=== PATIENT | male | born 2000 | race Caucasian/White ===

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

== ENCOUNTER 2023-06-16 21:18 | Day surgery (SDC) | payer OTHER ==
[~2023-06-16] VITALS: Ht 160 cm; Wt 72.9 kg
[2023-06-16] MEDS ORDERED: PIPERACILLIN/TAZOBACTAM SOD 3.375 GM in D5W MINI-BAG PLUS 50 ML IV SCH (21:20)
[2023-06-16] MEDS ORDERED: ONDANSETRON 4MG 2ML VIAL IV PRN (21:20)
[2023-06-16 22:05] VITALS: BP 120/69; TEMP 97.5; O2SAT 99
[2023-06-16] MEDS ORDERED: UNRESOLVED CLARIFICATION ENTRY XX STA (22:13)
[2023-06-16] MEDS ORDERED: LIDOCAINE 1% SDV 30ML VIAL As Ordered ONE (22:39)
[2023-06-16] MEDS ORDERED: VITA200016 PO (22:44)
[2023-06-16] MEDS ORDERED: FERR325T3 PO (22:44)
[2023-06-16] MEDS ORDERED: HOME MED LIST COMPLETE! XX SCH (22:45)
[2023-06-16] MEDS ORDERED: CEFEPIME 1GM VIAL (MAXIPIME) As Ordered ONE (22:54)
[2023-06-16] MEDS ORDERED: fentaNYL 100 MCG/2 ML INJECTION As Ordered ONE (23:30)
[2023-06-16] MEDS ORDERED: LIDOCAINE 2% 100MG/5ML SDV (FOR ANES.) As Ordered ONE (23:30)
[2023-06-16] MEDS ORDERED: ONDANSETRON 4MG 2ML VIAL As Ordered ONE (23:30)
[2023-06-16] MEDS ORDERED: KETOROLAC 60MG 2ML VIAL As Ordered ONE (23:30)
[2023-06-16] MEDS ORDERED: propofoL 200 MG/20 ML VIAL As Ordered ONE (23:30)
[2023-06-16] MEDS ORDERED: MIDAZOLAM INJ 2MG/2ML VIAL As Ordered ONE (23:30)
[2023-06-16] MEDS ORDERED: ROCURONIUM BROMIDE 50MG/5ML VIAL As Ordered ONE (23:30)
[2023-06-16] MEDS ORDERED: SUCCINYLCHOLINE 100MG/5ML SYRINGE As Ordered ONE (23:30)
[2023-06-16] MEDS ORDERED: PHENYLephrine 500MCG 5ML (100MCG/ML) SYRINGE As Ordered ONE (23:42)
[2023-06-16] MEDS ORDERED: ACETAMINOPHEN 1000MG 100ML IV BAG As Ordered ONE (23:45)
[2023-06-17] VITALS (8 sets, daily range): BP systolic 109–131; BP diastolic 51–82; TEMP 96.4–97.5; O2SAT 98–100
[2023-06-17] MEDS ORDERED: SUGAMMADEX SODIUM 500 MG/5 ML VIAL (BRIDION) As Ordered ONE (00:07)
[2023-06-17] MEDS ORDERED: ONDANSETRON 4MG 2ML VIAL IV PRN (00:25)
[2023-06-17] MEDS ORDERED: oxyCODONE 5MG TAB PO PRN (00:25)
[2023-06-17] MEDS ORDERED: LR 1,000 ML IV SCH (00:25)
[2023-06-17] MEDS ORDERED: fentaNYL 100 MCG/2 ML INJECTION IV PRN (00:25)
[2023-06-17] MEDS ORDERED: HYDROMORPHONE HCL 0.5 MG/ 0.5 ML SYRINGE IV PRN (00:25)
[2023-06-17] MEDS: LR 1,000 ML IV SCH ×2 (00:36→06:02)
[2023-06-17] MEDS ORDERED: MORPHINE 4 MG/ML 1ML VIAL IV PRN (01:00)
[2023-06-17] MEDS ORDERED: MORPHINE 2 MG/ML 1ML VIAL IV PRN (01:00)
[2023-06-17] MEDS ORDERED: CEFEPIME HCL 2 GM in D5W MINI-BAG PLUS 50 ML IV SCH (03:00)
[2023-06-17] MEDS ORDERED: ACETAMINOPHEN TAB 650MG DOSE (2X325MG) PO PRN (04:00)
[2023-06-17] MEDS ORDERED: KETOROLAC 30 MG/ML 1ML VIAL IV SCH (06:00)
== END 2023-06-17 11:10 | disposition home or self-care (01) ==
LOC: M ED INP 21:18 → M SDC 21:18 → UNDOADMIN 21:18 → M ED INP 22:07 → M PED 22:07 → M SDC 06-17 11:10 → UNDODISIN 06-17 11:10
PROVIDERS: ATTEND Surgery
DX: K35.80 Unspecified acute appendicitis (principal)
CPT/HCPCS: 44970; 88304; 96361; 96365; 96366; 96375; J0131; J0692; J1100; J1885; J2250; J2371; J2405; J3010

== ENCOUNTER → 2024-02-18 | Outpatient (REF) | payer OTHER ==
[~2024-02-18] MED LIST: FERR325T3 PO; VITA200016 PO
[2024-02-18 16:36] LABS: Trichomonas vaginalis (AMP) POSITIVE (NEGATIVE)
[2024-02-18 17:08] LABS: GC DNA AMPLIFICATION NEGATIVE (NEGATIVE)
== END ==
LOC: M SFHCWAGY 14:51
PROVIDERS: ATTEND Obstetrics & Gynecology
DX: Z11.3 Encounter for screening for infections with a predominantly sexual mode of transmission (principal); Z12.4 Encounter for screening for malignant neoplasm of cervix; Z77.9 Other contact with and (suspected) exposures hazardous to health; R87.610 Atypical squamous cells of undetermined significance on cytologic smear of cervix (ASC-US)

== ENCOUNTER → 2024-05-21 | Outpatient (CLI) | payer OTHER ==
[~2024-05-21] MED LIST changes: +CYCL-707 PO
== END ==
LOC: M WHC 07:10
PROVIDERS: ATTEND Obstetrics & Gynecology
DX: R10.2 Pelvic and perineal pain (principal)

== ENCOUNTER 2024-05-27 05:55 | Day surgery (SDC) | payer OTHER ==
[~2024-05-27] VITALS: Ht 157.5 cm; Wt 61.9 kg
[2024-05-27] MEDS ORDERED: LR 1,000 ML IV SCH ×3 (06:00→09:10)
[2024-05-27] MEDS ORDERED: fentaNYL 100 MCG/2 ML INJECTION As Ordered ONE (06:48)
[2024-05-27] MEDS ORDERED: MIDAZOLAM INJ 2MG/2ML VIAL As Ordered ONE (06:48)
[2024-05-27] MEDS ORDERED: ROCURONIUM BROMIDE 50MG/5ML VIAL As Ordered ONE (06:49)
[2024-05-27] MEDS ORDERED: propofoL 200 MG/20 ML VIAL As Ordered ONE (06:49)
[2024-05-27] MEDS ORDERED: LIDOCAINE 2% 100MG/5ML SDV (FOR ANES.) As Ordered ONE (06:49)
[2024-05-27] MEDS ORDERED: ACETAMINOPHEN 1000MG 100ML IV BAG As Ordered ONE (06:49)
[2024-05-27 06:55] LABS: HEMATOCRIT 42.9 % (36.0-47.0); HEMOGLOBIN 13.7 g/dl (12.0-15.5); MEAN CORPUSCULAR HGB CONC 31.9 g/dl (32.0-36.5); MEAN CORPUSCULAR VOLUME 81.4 fl (80.0-96.0); PLATELET COUNT, AUTOMATED 209 10^3/uL (150-450); RED BLOOD COUNT 5.27 10^6/uL (4.00-5.40); WHITE BLOOD COUNT 5.6 10^3/uL (4.0-10.0)
[2024-05-27] MEDS ORDERED: SUGAMMADEX SODIUM 500 MG/5 ML VIAL (BRIDION) As Ordered ONE (07:58)
[2024-05-27] MEDS ORDERED: ONDANSETRON 4MG 2ML VIAL As Ordered ONE (07:58)
[2024-05-27] MEDS ORDERED: KETOROLAC 60MG 2ML VIAL As Ordered ONE (07:58)
[2024-05-27] MEDS: METHYLENE BLUE 0.5% (5MG/ML) 10 ML AMP (PROVAYBLUE) As Ordered ONE (09:00)
[2024-05-27] MEDS ORDERED: HYDROMORPHONE HCL 0.5 MG/ 0.5 ML SYRINGE IV PRN (09:10)
[2024-05-27] MEDS ORDERED: fentaNYL 100 MCG/2 ML INJECTION IV PRN (09:10)
[2024-05-27] MEDS ORDERED: PERC5TAB12 PO (09:32)
[2024-05-27] MEDS: ONDANSETRON 4MG 2ML VIAL IV PRN (09:32)
[2024-05-27] MEDS ORDERED: COLA100C5 PO (09:33)
[2024-05-27] MEDS ORDERED: IBUP80TA PO (09:33)
[2024-05-27] MEDS: METOCLOPRAMIDE INJ 10MG/2ML VIAL IV PRN (09:42)
[2024-05-27] MEDS: oxyCODONE 5MG TAB PO PRN (09:55)
[2024-05-27 10:35] VITALS: BP 113/67; TEMP 97.6; O2SAT 100
== END 2024-05-27 10:53 | disposition home or self-care (01) ==
LOC: M SDC 05:55
PROVIDERS: ATTEND Obstetrics & Gynecology
DX: R10.2 Pelvic and perineal pain (principal); N80.9 Endometriosis, unspecified; N73.6 Female pelvic peritoneal adhesions (postinfective); F43.10 Post-traumatic stress disorder, unspecified; F41.9 Anxiety disorder, unspecified; D64.9 Anemia, unspecified; F17.200 Nicotine dependence, unspecified, uncomplicated; Z79.899 Other long term (current) drug therapy; Z88.0 Allergy status to penicillin; Z88.5 Allergy status to narcotic agent
CPT/HCPCS: 36415; 58662; 81025; 85027; 86850; 86900; 86901; 88305; J0131; J0665; J1100; J1885; J2250; J2405; J2765; J3010; Q9968